=== PATIENT | female | born 2005 | race Caucasian/White ===

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

== ENCOUNTER → 2025-01-22 | Outpatient (CLI) | payer BC ==
--- NOTE | 2025-02-26 12:25 | P.HOLTER ---
Holter monitor shows sinus mechanism, heart rates ranging from 41-182 beats minute No arrhythmias No arrhythmias during patient triggered events
== END | disposition home or self-care (01) ==
LOC: RADECHMAIN 07:32
PROVIDERS: ATTEND Family Medicine
DX: R00.2 Palpitations (principal)
CPT/HCPCS: 93225

== ENCOUNTER → 2025-02-04 | Outpatient (CLI) | payer BC ==
--- NOTE | 2025-02-04 14:58 | CA ---
Transthoracic Echo Report Name: Demetrice Tejeda Age: 19 Gender: F : 2005 Exam Date: 02/04/2025 12:50 Exam Location: [facility] Ht (in): 68 Wt (lb): 140 Ordering Physician: [facility] DO Attending/Referring Phys: Faith Perez PAC Mower Operator Yoly Baron RDCS Procedure CPT: Indications: R002 PALPATATIONS Cardiac Hx: Technical Quality: Good Contrast 1: Total Dose (mL): Contrast 2: Total Dose (mL): MEASUREMENTS (Male / Female) Normal Values 2D ECHO LV Diastolic Diameter PLAX 5.0 cm 4.2 - 5.9 / 3.9 - 5.3 cm LV Systolic Diameter PLAX 3.3 cm IVS Diastolic Thickness 0.6 cm 0.6 - 1.0 / 0.6 - 0.9 cm LVPW Diastolic Thickness 0.7 cm 0.6 - 1.0 / 0.6 - 0.9 cm LV Relative Wall Thickness 0.3 LVOT Diameter 2.2 cm LV Diastolic Volume MOD BP 119.8 cm??? 67 - 155 / 56 - 104 cm??? LV Systolic Volume MOD BP 43.7 cm??? 22 - 58 / 19 - 49 cm??? LV Ejection Fraction MOD BP 63.5 % >= 55 % LV Cardiac Index MOD BP 3187.1 cm???/min???m??? LV Diastolic Volume MOD 4C 113.6 cm??? LV Systolic Volume MOD 4C 43.2 cm??? LV Ejection Fraction MOD 4C 62.0 % LV Cardiac Index MOD 4C 2946.0 cm???/min???m??? LV Diastolic Length 4C 9.0 cm LV Systolic Length 4C 6.8 cm LV Diastolic Volume MOD 2C 123.3 cm??? LV Systolic Volume MOD 2C 40.4 cm??? LV Ejection Fraction MOD 2C 67.2 % LV Cardiac Index MOD 2C 3471.2 cm???/min???m??? LV Diastolic Length 2C 9.2 cm LV Systolic Length 2C 7.5 cm LA Volume 51.3 cm??? 18 - 58 / 22 - 52 cm??? LA Volume Index 29.4 cm???/m??? 16 - 28 cm???/m??? DOPPLER AV Peak Velocity 121.3 cm/s AV Peak Gradient 5.9 mmHg AV Mean Velocity 86.9 cm/s AV Mean Gradient 3.3 mmHg AV Velocity Time Integral 26.3 cm LVOT Peak Velocity 94.4 cm/s LVOT Peak Gradient 3.6 mmHg LVOT Velocity Time Integral 18.3 cm LVOT Stroke Volume 68.9 cm??? LVOT Stroke Volume Index 39.3 ml/m??? LVOT Cardiac Index 2887.1 cm???/min???m??? AV Area Cont Eq vti 2.6 cm??? AV Area Cont Eq pk 2.9 cm??? MV Area PHT 4.7 cm??? Mitral E Point Velocity 72.2 cm/s Mitral A Point Velocity 38.3 cm/s Mitral E to A Ratio 1.9 MV Deceleration Time 160.8 ms TR Peak Velocity 220.9 cm/s TR Peak Gradient 19.5 mmHg Right Atrial Pressure 5.0 mmHg Pulmonary Artery Systolic Pressu 24.5 mmHg Right Ventricular Systolic Press 24.5 mmHg PV Peak Velocity 98.0 cm/s PV Peak Gradient 3.8 mmHg FINDINGS Left Ventricle Left ventricular ejection fraction is estimated at 60 %. Mildly increased left ventricular diastolic volume. Left ventricular wall thickness normal. No obvious regional wall motion abnormalities. Normal diastolic function. Right Ventricle Normal right ventricular size and function. Right ventricular systolic pressure within normal limits. Right Atrium Normal right atrial size. Left Atrium Mildly increased left atrial volume. Mitral Valve Structurally normal mitral valve. No evidence for mitral valve prolapse. No mitral stenosis. Trace mitral regurgitation. Aortic Valve Trileaflet aortic valve. No aortic valve stenosis or regurgitation. Tricuspid Valve Structurally normal tricuspid valve. No tricuspid stenosis. Mild tricuspid regurgitation. Pulmonic Valve Structurally normal pulmonic valve. No pulmonic stenosis. Mild pulmonic regurgitation. Pericardium No pericardial effusion. Aorta Normal size aortic root and proximal ascending aorta. CONCLUSIONS Left ventricular ejection fraction 60% Trace mitral regurgitation Mild tricuspid regurgitation No pericardial effusion Previewed by: Dr. Sanjay Michel DO (Electronically Signed) Final Date: 04 February 2025 14:57
== END | disposition home or self-care (01) ==
LOC: RADECHMAIN 12:40
PROVIDERS: ATTEND Family Medicine
DX: I08.1 Rheumatic disorders of both mitral and tricuspid valves (principal); R00.2 Palpitations
CPT/HCPCS: 93306